=== PATIENT | female | born 1990 | race Caucasian/White ===

== ENCOUNTER 2021-01-29 15:29 | Emergency (ER) | payer OTHER ==
[~2021-01-29] VITALS: Ht 152.4 cm; Wt 61.2 kg
[~2021-01-29 15:29] MED LIST: DOXY100 PO; FLUSAL1005; HYDACE5 PO; IBUP600 PO; IBUP800 PO; METR250 PO; MISO100 PO; ONDA4 PO; OXYACE5T; OXYACE5T PO; PENVK500; PRO-AIR; PROM25 PO; PROM25S PR; Percocet 5-3251 EACH PO; RANI150 PO; RXONDA4ODT MM; Verotin-Gr Cap1 EACH PO
[2021-01-29] MEDS ORDERED: ESCI10 PO (16:08)
[2021-01-29] MEDS ORDERED: BUSPIRONE HCL7.5 M2 PO (16:08)
[2021-01-29] MEDS ORDERED: MIRENA1 EAC1 VAG (16:08)
== END 2021-01-29 16:32 | disposition home or self-care (01) ==
LOC: ER 15:29
DX: S06.0X9A Concussion with loss of consciousness of unspecified duration, initial encounter (principal); E11.9 Type 2 diabetes mellitus without complications; Z88.6 Allergy status to analgesic agent; Y04.2XXA Assault by strike against or bumped into by another person, initial encounter
CPT/HCPCS: 71046; 73130; 99284-25

== ENCOUNTER 2021-03-30 00:17 | Emergency (ER) | payer OTHER ==
[~2021-03-30] VITALS: Ht 152.4 cm; Wt 61.2 kg
[~2021-03-30 00:17] MED LIST changes: +BUSPIRONE HCL7.5 M2 PO; +ESCI10 PO; +MIRENA1 EAC1 VAG
[2021-03-30] MEDS ORDERED: DOXYCYCLINE HY100 M1 PO (01:57)
[2021-03-30 02:12] LABS: BASOPHILS ABSOLUTE AUTO 0.08 K/mm3 (0.00-0.23); BASOPHILS PERCENT AUTO 0 % (0-2); EOSINOPHILS PERCENT AUTO 0 % (0-6); Hematocrit 39.5 % (33.0-51.0); Hemoglobin 13.9 g/dL (11.5-16.0); IMMATURE GRAN ABSOLUTE AUTO 0.11 K/mm3 (0.00-0.10); IMMATURE GRAN PERCENT AUTO 1 % (0-1); LYMPHOCYTES ABSOLUTE AUTO 2.75 K/mm3 (0.84-5.20); LYMPHOCYTES PERCENT AUTO 12 % (21-46); MONOCYTES ABSOLUTE AUTO 1.78 K/mm3 (0.16-1.47); MONOCYTES PERCENT AUTO 8 % (4-13); Mean Corpuscular HGB 29.9 pg (26.0-34.0); Mean Corpuscular HGB Conc 35.2 g/dL (31.5-36.5); Mean Corpuscular Volume 85 fL (80-100); Mean Platelet Volume 8.8 fL (9.1-12.4); NEUTROPHILS ABSOLUTE AUTO 18.28 K/mm3 (1.96-9.15); NEUTROPHILS PERCENT AUTO 80 % (41-73); NRBC ABSOLUTE 0.02 K/mm3 (0.00-0.02); NRBC Auto 0.1 /100 WBC (0.0-0.2); Platelet Count 611 K/mm3 (150-400); RDW Coefficient Variation 12.2 % (11.7-14.2); RDW Standard Deviation 37.4 fL (35.1-46.3); Red Blood Cell Count 4.65 M/mm3 (3.80-5.20)
[2021-03-30 02:30] LABS: Alanine Aminotransfer (ALT/SGP 22 U/L (12-78); Albumin, Blood 4.3 g/dL (3.4-5.0); Alk Phos 77 U/L (50-136); Anion Gap 14 mmol/L (6-16); Aspartate Aminotrans (AST/SGOT 21 U/L (12-37); Bilirubin, Total 1.2 mg/dL (0.1-1.0); Blood Urea Nitrogen 8 mg/dL (8-24); Bun/Creatinine Ratio 16.8 (12.0-20.0); CO2, Blood 19 mmol/L (21-32); Calcium, Blood 9.6 mg/dL (8.5-10.1); Chloride, Blood 100 mmol/L (98-108); Creatinine, Blood 0.48 mg/dL (0.40-1.00); Globulin, Blood 4.5 g/dL (2.2-4.0); Glomerular Filtration Rate >60 (60-); Glucose, Blood 101 mg/dL (70-99); Potassium, Blood 3.1 mmol/L (3.5-5.5); Sodium, Blood 133 mmol/L (136-145); Total Protein, Blood 8.8 g/dL (6.4-8.2)
[2021-03-30] MEDS ORDERED: PROM12.5S PR (04:11)
[2021-03-30] MEDS ORDERED: ESCI10 PO (19:11)
[2021-03-30] MEDS ORDERED: ONDA4ODT MM (19:12)
== END 2021-03-30 05:45 | disposition home or self-care (01) ==
LOC: ER 00:17
PROVIDERS: Emergency Medicine
DX: R10.2 Pelvic and perineal pain (principal); Z88.6 Allergy status to analgesic agent; Z91.018 Allergy to other foods; Z79.899 Other long term (current) drug therapy
CPT/HCPCS: 76830; 76856; 80053; 83690; 85025; 96374; 96375; 99284-25; A9270; J1630; J2550; J3010; J7030

== ENCOUNTER 2021-03-30 15:03 | Inpatient (IN) | payer OTHER ==
[~2021-03-30] VITALS: Ht 152.4 cm; Wt 59.1 kg
[~2021-03-30 15:03] MED LIST changes: +DOXYCYCLINE HY100 M1 PO; +PROM12.5S PR
[2021-03-30 16:18] LABS: BASOPHILS ABSOLUTE AUTO 0.05 K/mm3 (0.00-0.23); BASOPHILS PERCENT AUTO 0 % (0-2); EOSINOPHILS ABSOLUTE AUTO 0.01 K/mm3 (0.00-0.68); EOSINOPHILS PERCENT AUTO 0 % (0-6); Hematocrit 40.1 % (33.0-51.0); IMMATURE GRAN ABSOLUTE AUTO 0.11 K/mm3 (0.00-0.10); IMMATURE GRAN PERCENT AUTO 1 % (0-1); LYMPHOCYTES ABSOLUTE AUTO 3.34 K/mm3 (0.84-5.20); LYMPHOCYTES PERCENT AUTO 21 % (21-46); MONOCYTES ABSOLUTE AUTO 1.23 K/mm3 (0.16-1.47); MONOCYTES PERCENT AUTO 8 % (4-13); Mean Corpuscular HGB 29.6 pg (26.0-34.0); Mean Corpuscular HGB Conc 34.9 g/dL (31.5-36.5); Mean Corpuscular Volume 85 fL (80-100); Mean Platelet Volume 8.7 fL (9.1-12.4); NEUTROPHILS ABSOLUTE AUTO 11.45 K/mm3 (1.96-9.15); NEUTROPHILS PERCENT AUTO 71 % (41-73); Platelet Count 581 K/mm3 (150-400); RDW Coefficient Variation 12.3 % (11.7-14.2); RDW Standard Deviation 38.3 fL (35.1-46.3); Red Blood Cell Count 4.73 M/mm3 (3.80-5.20); White Blood Cell Count 16.19 K/mm3 (4.00-11.30)
[2021-03-30 16:32] LABS: Alanine Aminotransfer (ALT/SGP 23 U/L (12-78); Albumin, Blood 4.1 g/dL (3.4-5.0); Albumin/Globulin Ratio 0.9 (0.8-1.8); Alk Phos 77 U/L (50-136); Anion Gap 12 mmol/L (6-16); Aspartate Aminotrans (AST/SGOT 19 U/L (12-37); Blood Urea Nitrogen 6 mg/dL (8-24); Bun/Creatinine Ratio 11.3 (12.0-20.0); CO2, Blood 21 mmol/L (21-32); Calcium, Blood 9.4 mg/dL (8.5-10.1); Chloride, Blood 102 mmol/L (98-108); Creatinine, Blood 0.53 mg/dL (0.40-1.00); Globulin, Blood 4.6 g/dL (2.2-4.0); Glomerular Filtration Rate >60 (60-); Glucose, Blood 97 mg/dL (70-99); Sodium, Blood 135 mmol/L (136-145); Total Protein, Blood 8.7 g/dL (6.4-8.2)
[2021-03-30 17:46] LABS: Source, Urine Clean Catch
[2021-03-30 17:59] LABS: Appearance, Urine Hazy (Clear); Bilirubin, Urine Neg (Neg); Blood, Urine 4+ (Neg); Color, Urine Yellow (P-Yellow); Glucose Qualitative, Urine Neg (Neg); Ketones, Urine 4+ (Neg); Leukocyte Esterase, Urine 1+ (Neg); Nitrite, Urine Neg (Neg); Protein, Urine 3+ (Neg); Specific Gravity, Urine 1.025 (1.003-1.022); Urobilinogen, Urine NORM (Normal)
[2021-03-30 18:41] LABS: Hyaline Casts 0-2 /lpf (0-2)
[2021-03-30 18:42] LABS: Bacteria Mod /hpf; Calcium Oxalate Crystals Mod /hpf; Mucus Light (0-Heavy); Squamous Epithelial Cells Mod /hpf (Few)
[2021-03-30] MEDS ORDERED: ESCI10 PO (19:11)
[2021-03-30] MEDS ORDERED: ONDA4ODT MM (19:12)
[2021-03-30 20:38] LABS: SARS-Cov-2 (COVID-19) PCR, MMC NEGATIVE (NEGATIVE)
--- NOTE | 2021-03-30 21:45 | NUR ---
PT ARRIVED TO FLOOR FROM ER. PT A/O, VSS. PT REP MILD DIZZINESS WHN FIRST UP OOB. PT REP LOWER ABD/PELVIC PAIN X6 DAYS. PT DENIES VAGINAL BLEEDING OR ABNORMAL DISCHARGE. PT DENIES PAIN W/URINATION, SHE DOES REPORT PAIN W/INTERCOURSE. PT N/V X6 DAYS, REP SHE HAS BEEN UNABLE TO KEEP SOLID FOOD DOWN FOR 6 DAYS. PT ORIENTED TO ROOM/CALL LIGHT, MEDS AND ORDERS REV. PLAN TO MONITOR AND TX PER ORDERS.
[2021-03-31 00:48] LABS: Candida species (DNA Probe) Negative (NEGATIVE); G. vaginalis (DNA Probe) Positive (NEGATIVE); T. vaginalis (DNA Probe) Negative (NEGATIVE)
[2021-03-31 04:58] LABS: BASOPHILS ABSOLUTE AUTO 0.05 K/mm3 (0.00-0.23); BASOPHILS PERCENT AUTO 0 % (0-2); EOSINOPHILS ABSOLUTE AUTO 0.02 K/mm3 (0.00-0.68); EOSINOPHILS PERCENT AUTO 0 % (0-6); Hematocrit 36.7 % (33.0-51.0); Hemoglobin 12.6 g/dL (11.5-16.0); IMMATURE GRAN ABSOLUTE AUTO 0.06 K/mm3 (0.00-0.10); IMMATURE GRAN PERCENT AUTO 0 % (0-1); LYMPHOCYTES ABSOLUTE AUTO 2.77 K/mm3 (0.84-5.20); LYMPHOCYTES PERCENT AUTO 18 % (21-46); MONOCYTES ABSOLUTE AUTO 1.25 K/mm3 (0.16-1.47); MONOCYTES PERCENT AUTO 8 % (4-13); Mean Corpuscular HGB 29.3 pg (26.0-34.0); Mean Corpuscular HGB Conc 34.3 g/dL (31.5-36.5); Mean Corpuscular Volume 85 fL (80-100); Mean Platelet Volume 8.5 fL (9.1-12.4); NEUTROPHILS ABSOLUTE AUTO 11.66 K/mm3 (1.96-9.15); NEUTROPHILS PERCENT AUTO 74 % (41-73); Platelet Count 469 K/mm3 (150-400); RDW Coefficient Variation 12.2 % (11.7-14.2); RDW Standard Deviation 37.6 fL (35.1-46.3); White Blood Cell Count 15.81 K/mm3 (4.00-11.30)
[2021-03-31 05:37] LABS: Anion Gap 11 mmol/L (6-16); Blood Urea Nitrogen 3 mg/dL (8-24); Bun/Creatinine Ratio 6.5 (12.0-20.0); CO2, Blood 24 mmol/L (21-32); Calcium, Blood 8.4 mg/dL (8.5-10.1); Chloride, Blood 100 mmol/L (98-108); Creatinine, Blood 0.46 mg/dL (0.40-1.00); Glomerular Filtration Rate >60 (60-); Glucose, Blood 95 mg/dL (70-99); Sodium, Blood 135 mmol/L (136-145)
--- NOTE | 2021-03-31 06:37 | NUR ---
PT HAD 1 EPISIDE OF APPX 200 ML BILE EMESIS. PT VOIDED CLOUDT URINE X1, DENIED PAIN W/VOID BUT REP INC ABD PAIN AFTER VOIDING. PAIN AND NAUSEA MGD PER EMAR W/REP RELIEF. PT UP OOB INDEP, CARLOS ALBERTO WELL. PT NPO PER ORDERS, IVF AND ABX CONT PER ORDERS.
--- NOTE | 2021-03-31 17:44 | NUR ---
AT ABOUT 1720 PT AWAKE AND CALLING ABOUT PELVIC PAIN AND NAUSEA. PT REPORTS THE PAIN AND NAUSEA IS JUST GETTING WORSE, PT ALSO HAVING EMESIS. PT DENIES ANY ACUTE CHANGE IN PAIN QUALITY, JUST THAT PAIN IS CONSTANT.. PT MEDICATED PER EMAR AND DR. WAGGONER NOTIFIED. SEE NEW ORDERS. PT IV SITE STARTED BEING PAINFUL AT ABOUT THIS TIME ASWELL, NEW IV PLACED BY DIRECTOR OF MARKETING ANALYTICS ARIKA. PT TO IMAGING FOR PELVIC ULTRASOUND AT THIS TIME. PLAN TO START [facility] [employer] AIDE AND IV POTASSIUM UPON PT ARRIVAL BACK TO ROOM.
--- NOTE | 2021-03-31 18:25 | NUR ---
SUMMARY: PT ADMITTED FOR PID. PT HAS HAD CONSTANT NAUSEA AND PELVIC PAIN THOUGHOUT TODAY. IV FENT[facility] AND ANTIEMETICS HELPS PT SLEEP, BUT THEN PT WOULD AWAKE IN PAIN AND HAVE NAUSEA. PT HAD TOTAL OF 4 EMESIS, SMALL AMTS. PT UNABLE TO KEEP ANY LIQUIDS DOWN. PT HAS ANXIETY WITH PAIN/NAUSEA AND HR/BP ELEVATED WHILE PT PAINFUL. VSS WHILE PT AT REST. BRAILLE CODER PUMP NOW INFUSING ALONG WITH POTASSIUM. THESE MEDICATIONS ALONG WITH LR AND MEFOXIN ARE IV COMPATIBLE, VERIFIED WITH PHARMACY. PT INDEP IN ROOM, NO ACUTE SAFETY CONCERNS, WILL CTM AND REPORT TO NOC RN.
[2021-03-31 18:35] LABS: BASOPHILS ABSOLUTE AUTO 0.05 K/mm3 (0.00-0.23); BASOPHILS PERCENT AUTO 0 % (0-2); EOSINOPHILS ABSOLUTE AUTO 0.02 K/mm3 (0.00-0.68); EOSINOPHILS PERCENT AUTO 0 % (0-6); Hematocrit 37.9 % (33.0-51.0); Hemoglobin 13.2 g/dL (11.5-16.0); IMMATURE GRAN PERCENT AUTO 1 % (0-1); LYMPHOCYTES PERCENT AUTO 16 % (21-46); MONOCYTES PERCENT AUTO 7 % (4-13); Mean Corpuscular HGB 29.4 pg (26.0-34.0); Mean Corpuscular HGB Conc 34.8 g/dL (31.5-36.5); Mean Corpuscular Volume 84 fL (80-100); Mean Platelet Volume 8.6 fL (9.1-12.4); NEUTROPHILS ABSOLUTE AUTO 13.59 K/mm3 (1.96-9.15); NEUTROPHILS PERCENT AUTO 76 % (41-73); Platelet Count 565 K/mm3 (150-400); RDW Standard Deviation 37.1 fL (35.1-46.3); Red Blood Cell Count 4.49 M/mm3 (3.80-5.20); White Blood Cell Count 17.76 K/mm3 (4.00-11.30)
--- NOTE | 2021-03-31 19:27 | NUR ---
RECEIVED REPORT AND ASSUMED CARE OF PT. SHE IS LYING QUIETLY IN BED WITH EYES CLOSED, AROUSES TO VOICE. STATES SHE IS FEELING NO WORSE OR BETTER. WCTM.
[2021-04-01 04:29] LABS: BASOPHILS ABSOLUTE AUTO 0.06 K/mm3 (0.00-0.23); BASOPHILS PERCENT AUTO 0 % (0-2); EOSINOPHILS ABSOLUTE AUTO 0.06 K/mm3 (0.00-0.68); EOSINOPHILS PERCENT AUTO 0 % (0-6); Hematocrit 36.2 % (33.0-51.0); Hemoglobin 12.7 g/dL (11.5-16.0); IMMATURE GRAN ABSOLUTE AUTO 0.08 K/mm3 (0.00-0.10); IMMATURE GRAN PERCENT AUTO 1 % (0-1); LYMPHOCYTES ABSOLUTE AUTO 3.85 K/mm3 (0.84-5.20); LYMPHOCYTES PERCENT AUTO 27 % (21-46); MONOCYTES ABSOLUTE AUTO 1.15 K/mm3 (0.16-1.47); MONOCYTES PERCENT AUTO 8 % (4-13); Mean Corpuscular HGB Conc 35.1 g/dL (31.5-36.5); Mean Corpuscular Volume 85 fL (80-100); Mean Platelet Volume 8.5 fL (9.1-12.4); NEUTROPHILS ABSOLUTE AUTO 9.25 K/mm3 (1.96-9.15); NEUTROPHILS PERCENT AUTO 64 % (41-73); Platelet Count 498 K/mm3 (150-400); RDW Coefficient Variation 12.1 % (11.7-14.2); RDW Standard Deviation 37.8 fL (35.1-46.3); Red Blood Cell Count 4.24 M/mm3 (3.80-5.20); White Blood Cell Count 14.45 K/mm3 (4.00-11.30)
[2021-04-01 04:48] LABS: Alanine Aminotransfer (ALT/SGP 19 U/L (12-78); Albumin, Blood 3.2 g/dL (3.4-5.0); Albumin/Globulin Ratio 0.8 (0.8-1.8); Alk Phos 67 U/L (50-136); Anion Gap 10 mmol/L (6-16); Aspartate Aminotrans (AST/SGOT 10 U/L (12-37); Blood Urea Nitrogen 4 mg/dL (8-24); Bun/Creatinine Ratio 8.2 (12.0-20.0); CO2, Blood 26 mmol/L (21-32); Calcium, Blood 8.6 mg/dL (8.5-10.1); Chloride, Blood 100 mmol/L (98-108); Creatinine, Blood 0.49 mg/dL (0.40-1.00); Globulin, Blood 3.9 g/dL (2.2-4.0); Glomerular Filtration Rate >60 (60-); Glucose, Blood 72 mg/dL (70-99); Magnesium, Blood 1.8 mg/dL (1.6-2.4); Potassium, Blood 3.2 mmol/L (3.5-5.5); Sodium, Blood 136 mmol/L (136-145); Total Protein, Blood 7.1 g/dL (6.4-8.2)
--- NOTE | 2021-04-01 06:27 | NUR ---
SHIFT SUMMARY: KOTA IS A&OX4. VSS, NO ACUTE EVENTS OVERNIGHT. SHE REPORTS IMPROVING PAIN CONTROL WITH THE [employer] CLINICAL TEAM MANAGER. SHE HAS REPORTED NAUSEA FOR WHICH SHE WAS MEDICATED WITH REGLAN AND COMPAZINE. SHE REPORTS FEELING BETTER THIS MORNING THAN SHE DID YESTERDAY, ONLY ABLE TO TOLERATE A FEW ICE CHIPS. SHE REPORTS THAT IT HAS BEEN A FULL SEVEN DAYS SINCE SHE ATE, THIS WAS REPORTED TO DR. WAGGONER, NO NEW ORDERS AT THIS TIME. SHE IS INDEPENDENT IN THE ROOM, URINATING WITHOUT DIFFICULTY. SHE DID REPORT HAVING DIARRHEA THE LAST FEW DAYS. SHE DENIES ANY NEW COMPLAINTS OR CONCERNS. WBC COUNT IMPROVING. SHE IS LYING IN BED WITH THE CALL LIGHT IN REACH. WILL REPORT TO DAY SHIFT RN.
--- NOTE | 2021-04-01 15:05 | NUR ---
DR WAGGONER IN TO SEE PT. [employer] BASE MANAGER DC'D AT 1445. WILL SWITCH TO PERCOCET. ADVANCE DIET TOLERATED. PLAN TO DC THIS EVENING IF PT TOLERATES PO INTAKE AND PAIN MEDS.
[2021-04-01] MEDS ORDERED: PROC5 PO (15:47)
[2021-04-01] MEDS ORDERED: Percocet 5-3251 EACH PO (15:48)
--- NOTE | 2021-04-01 18:27 | NUR ---
DISCHARGE PT IS A/O X4, IND IN ROOM, TOLERATING PO INTAKE AND VOIDING. PAIN MANAGED ON PO PAIN MEDICATION. PT DENIES NAUSEA. DC INSTRUCTIONS REVIEWED WITH PT; REPORTS UNDERSTANDING AND NO QUESTIONS OR CONCERNS. PT SENT WITH SCRIPS AND DC INSTRUCTIONS. PT OFFERED WHEELCHAIR RIDE OUT BUT DECLINED. AMBULATED OUT WHERE HER RIDE WAS WAITING. IV DC'D WNL. NO OTHER IV'S IN PLACE. PT DC'D AT 1815.
[2021-04-02 01:06] LABS: CHLAMYDIA TRACHOMATIS, NAA Negative (Negative)
== END 2021-04-01 18:21 | disposition home or self-care (01) | DRG 760 ==
LOC: ER 15:03 → SURS 19:42
PROVIDERS: Emergency Medicine; Obstetrics & Gynecology; Physician Assistant; ADMIT Obstetrics & Gynecology
DX: N83.291 Other ovarian cyst, right side (principal); N73.0 Acute parametritis and pelvic cellulitis; Z20.822 Contact with and (suspected) exposure to COVID-19; E11.9 Type 2 diabetes mellitus without complications; J45.909 Unspecified asthma, uncomplicated; F32.9 Major depressive disorder, single episode, unspecified; F41.9 Anxiety disorder, unspecified; N80.9 Endometriosis, unspecified; Z79.3 Long term (current) use of hormonal contraceptives; Z88.8 Allergy status to other drugs, medicaments and biological substances; Z88.4 Allergy status to anesthetic agent; Z90.49 Acquired absence of other specified parts of digestive tract; Z98.890 Other specified postprocedural states
CPT/HCPCS: 36415; 74177; 76830; 76856; 80048; 80053; 81001; 83605; 83735; 84703; 85025; 86140; 87086; 87480; 87491; 87510; 87591; 87660; 94762; 96365-59; 96366; 96367; 96375; 96376; 99285-25; A9270; G0378; J0694; J0780; J1170; J2405; J2550; J2765; J3010; J3480; J7030; J7040; J7120; Q9967; U0004

== ENCOUNTER 2022-04-10 10:56 | Emergency (ER) | payer OTHER ==
[~2022-04-10] VITALS: Ht 152.4 cm; Wt 57.6 kg
[~2022-04-10 10:56] MED LIST changes: +CEPH500 PO; +ONDA4ODT MM; +PROC5 PO
[2022-04-10 13:16] LABS: BASOPHILS ABSOLUTE AUTO 0.03 K/mm3 (0.00-0.23); BASOPHILS PERCENT AUTO 0 % (0-2); Hematocrit 48.2 % (33.0-51.0); LYMPHOCYTES PERCENT AUTO 11 % (21-46); Mean Corpuscular HGB 28.6 pg (26.0-34.0); Mean Corpuscular HGB Conc 33.2 g/dL (31.5-36.5); Mean Corpuscular Volume 86 fL (80-100); Mean Platelet Volume 8.5 fL (9.1-12.4); Platelet Count 610 K/mm3 (150-400); RDW Coefficient Variation 13.3 % (11.7-14.2); RDW Standard Deviation 41.7 fL (35.1-46.3); Red Blood Cell Count 5.59 M/mm3 (3.80-5.20); White Blood Cell Count 19.88 K/mm3 (4.00-11.30)
[2022-04-10 13:39] LABS: Albumin, Blood 4.6 g/dL (3.4-5.0); Bilirubin, Total 0.7 mg/dL (0.1-1.0); Bun/Creatinine Ratio 35.9 (12.0-20.0); Calcium, Blood 10.2 mg/dL (8.5-10.1); Creatinine, Blood 0.56 mg/dL (0.40-1.00); Globulin, Blood 4.7 g/dL (2.2-4.0); Potassium, Blood 3.6 mmol/L (3.5-5.5); Total Protein, Blood 9.3 g/dL (6.4-8.2)
[2022-04-10 14:19] LABS: EOSINOPHILS PERCENT AUTO 0 % (0-6)
[2022-04-10 14:27] LABS: IMMATURE GRAN PERCENT AUTO 1 % (0-1); LYMPHOCYTES ABSOLUTE AUTO 2.16 K/mm3 (0.84-5.20); MONOCYTES ABSOLUTE AUTO 1.27 K/mm3 (0.16-1.47); MONOCYTES PERCENT AUTO 6 % (4-13); NEUTROPHILS PERCENT AUTO 82 % (41-73)
== END 2022-04-10 16:37 | disposition left against medical advice (07) ==
LOC: ER 10:56
PROVIDERS: Student in an Organized Health Care Education/Training Program
DX: R10.9 Unspecified abdominal pain (principal); R11.2 Nausea with vomiting, unspecified; Z53.21 Procedure and treatment not carried out due to patient leaving prior to being seen by health care provider
CPT/HCPCS: 36415; 74177; 80053; 85025; Q9967

== ENCOUNTER → 2022-04-11 | Outpatient (CLI) | payer OTHER ==
[2022-04-11 14:31] LABS: BASOPHILS ABSOLUTE AUTO 0.03 K/mm3 (0.00-0.23); BASOPHILS PERCENT AUTO 0 % (0-2); EOSINOPHILS ABSOLUTE AUTO 0.01 K/mm3 (0.00-0.68); EOSINOPHILS PERCENT AUTO 0 % (0-6); Hematocrit 47.2 % (33.0-51.0); Hemoglobin 16.2 g/dL (11.5-16.0); IMMATURE GRAN ABSOLUTE AUTO 0.06 K/mm3 (0.00-0.10); IMMATURE GRAN PERCENT AUTO 0 % (0-1); LYMPHOCYTES ABSOLUTE AUTO 3.04 K/mm3 (0.84-5.20); LYMPHOCYTES PERCENT AUTO 19 % (21-46); MONOCYTES ABSOLUTE AUTO 1.17 K/mm3 (0.16-1.47); MONOCYTES PERCENT AUTO 7 % (4-13); Mean Corpuscular HGB 29.2 pg (26.0-34.0); Mean Corpuscular HGB Conc 34.3 g/dL (31.5-36.5); Mean Corpuscular Volume 85 fL (80-100); Mean Platelet Volume 8.3 fL (9.1-12.4); NEUTROPHILS ABSOLUTE AUTO 11.87 K/mm3 (1.96-9.15); NEUTROPHILS PERCENT AUTO 73 % (41-73); Platelet Count 634 K/mm3 (150-400); RDW Coefficient Variation 13.1 % (11.7-14.2); RDW Standard Deviation 40.8 fL (35.1-46.3); Red Blood Cell Count 5.54 M/mm3 (3.80-5.20); White Blood Cell Count 16.18 K/mm3 (4.00-11.30)
[2022-04-11 14:44] LABS: Albumin, Blood 4.4 g/dL (3.4-5.0); Albumin/Globulin Ratio 1.1 (0.8-1.8); Bilirubin, Total 1.2 mg/dL (0.1-1.0); Bun/Creatinine Ratio 30.5 (12.0-20.0); Calcium, Blood 9.7 mg/dL (8.5-10.1); Creatinine, Blood 0.59 mg/dL (0.40-1.00); Globulin, Blood 4.1 g/dL (2.2-4.0); Potassium, Blood 3.8 mmol/L (3.5-5.5); Total Protein, Blood 8.5 g/dL (6.4-8.2)
== END | disposition home or self-care (01) ==
LOC: LAB SHORT 14:24
PROVIDERS: Chiropractor
DX: E86.0 Dehydration (principal)
CPT/HCPCS: 80053; 83690; 85025

== ENCOUNTER 2023-08-27 00:48 | Observation (INO) | payer OTHER ==
[~2023-08-27] VITALS: Ht 152.4 cm; Wt 56.7 kg
[2023-08-27 01:25] LABS: BASOPHILS ABSOLUTE AUTO 0.08 K/mm3 (0.00-0.23); BASOPHILS PERCENT AUTO 1 % (0-2); EOSINOPHILS ABSOLUTE AUTO 0.07 K/mm3 (0.00-0.68); EOSINOPHILS PERCENT AUTO 1 % (0-6); Hematocrit 41.4 % (33.0-51.0); Hemoglobin 13.6 g/dL (11.5-16.0); IMMATURE GRAN ABSOLUTE AUTO 0.07 K/mm3 (0.00-0.10); IMMATURE GRAN PERCENT AUTO 1 % (0-1); LYMPHOCYTES ABSOLUTE AUTO 3.71 K/mm3 (0.84-5.20); LYMPHOCYTES PERCENT AUTO 28 % (21-46); MONOCYTES ABSOLUTE AUTO 0.76 K/mm3 (0.16-1.47); MONOCYTES PERCENT AUTO 6 % (4-13); Mean Corpuscular HGB 29.4 pg (26.0-34.0); Mean Corpuscular HGB Conc 32.9 g/dL (31.5-36.5); Mean Corpuscular Volume 89 fL (80-100); Mean Platelet Volume 8.4 fL (9.1-12.4); NEUTROPHILS ABSOLUTE AUTO 8.49 K/mm3 (1.96-9.15); NEUTROPHILS PERCENT AUTO 65 % (41-73); Platelet Count 641 K/mm3 (150-400); RDW Coefficient Variation 12.6 % (11.7-14.2); RDW Standard Deviation 41.3 fL (35.1-46.3); Red Blood Cell Count 4.63 M/mm3 (3.80-5.20); White Blood Cell Count 13.18 K/mm3 (4.00-11.30)
[2023-08-27 01:45] LABS: Ethanol (Alcohol), Blood, Med 20 mg/dL; Salicylate <1.7 mg/dL (2.8-20.0)
[2023-08-27 01:49] LABS: Acetaminophen, Random <2.0 ug/mL (10.0-30.0); Alanine Aminotransfer (ALT/SGP 18 U/L (12-78); Albumin, Blood 3.9 g/dL (3.4-5.0); Albumin/Globulin Ratio 0.8 (0.8-1.8); Alk Phos 94 U/L (50-136); Anion Gap 8 mmol/L (6-16); Aspartate Aminotrans (AST/SGOT 22 U/L (12-37); Bilirubin, Total 0.3 mg/dL (0.1-1.0); Blood Urea Nitrogen 11 mg/dL (8-24); Bun/Creatinine Ratio 19.8 (12.0-20.0); CO2, Blood 23 mmol/L (21-32); Calcium, Blood 9.5 mg/dL (8.5-10.1); Chloride, Blood 108 mmol/L (98-108); Creatinine, Blood 0.56 mg/dL (0.40-1.00); Globulin, Blood 4.8 g/dL (2.2-4.0); Glomerular Filtration Rate 124 (60-); Glucose, Blood 89 mg/dL (70-99); Potassium, Blood 3.6 mmol/L (3.5-5.5); Sodium, Blood 139 mmol/L (136-145); Total Protein, Blood 8.7 g/dL (6.4-8.2)
[2023-08-27 12:36] LABS: Source, Urine Clean Catch
[2023-08-27 12:39] LABS: Appearance, Urine Clear (Clear); Bilirubin, Urine Neg (Neg); Blood, Urine 2+ (Neg); Color, Urine Yellow (P-Yellow); Glucose Qualitative, Urine Neg (Neg); Ketones, Urine Neg (Neg); Leukocyte Esterase, Urine Neg (Neg); Nitrite, Urine Neg (Neg); Protein, Urine Neg (Neg); Urobilinogen, Urine NORM (Normal)
[2023-08-27 12:46] LABS: Bacteria Few /hpf; Squamous Epithelial Cells Few /hpf (Few)
[2023-08-27 12:47] LABS: Calcium Oxalate Crystals Few /hpf; Mucus Light (0-Heavy)
[2023-08-27 12:54] LABS: U Cannabinoids Screen DETECTED
[2023-08-27 12:55] LABS: U Amphetamine Screen Not Detected; U Barbituate Screen Not Detected; U Benzodiazapine Screen DETECTED; U Buprenorphine Screen Not Detected; U Cocaine Screen Not Detected; U Methadone Screen Not Detected; U Methamphetamine Screen Not Detected; U Opiates Screen Not Detected; U Oxycodone Screen Not Detected; U Phencyclidine Screen Not Detected
[2023-08-27 16:25] LABS: Influenza A, PCR NEGATIVE (NEGATIVE); Influenza B, PCR NEGATIVE (NEGATIVE); Resp Syncytial Virus, PCR NEGATIVE (NEGATIVE); SARS-Cov-2 (COVID-19) PCR, MMC NEGATIVE (NEGATIVE)
[2023-08-29] MEDS ORDERED: QUET200 PO (10:39)
[2023-08-29] MEDS ORDERED: BUPR150ER PO (10:39)
[2023-08-29 10:58] VITALS: BP 147/90
== END 2023-08-29 10:56 | disposition home or self-care (01) ==
LOC: ER 00:48 → EOR 00:49
PROVIDERS: ADMIT Student in an Organized Health Care Education/Training Program
DX: F33.2 Major depressive disorder, recurrent severe without psychotic features (principal); F43.10 Post-traumatic stress disorder, unspecified
CPT/HCPCS: 0241U; 80053; 81001; 81025; 85025; 93005; 93010; 96361; 96374; 96376; 99285-25; A9270; G0378; G0480; J2060; J7030

== ENCOUNTER 2023-10-26 08:06 | Emergency (ER) | payer OTHER ==
[~2023-10-26] VITALS: Ht 152.4 cm; Wt 59.0 kg
[~2023-10-26 08:06] MED LIST changes: +BUPR150ER PO; +QUET200 PO
[2023-10-26] MEDS ORDERED: NS 1,000 ML IV SCH (08:10)
[2023-10-26 08:19] LABS: BASOPHILS ABSOLUTE AUTO 0.07 K/mm3 (0.00-0.23); BASOPHILS PERCENT AUTO 0 % (0-2); EOSINOPHILS PERCENT AUTO 0 % (0-6); Hemoglobin 13.2 g/dL (11.5-16.0); IMMATURE GRAN ABSOLUTE AUTO 0.23 K/mm3 (0.00-0.10); IMMATURE GRAN PERCENT AUTO 1 % (0-1); LYMPHOCYTES ABSOLUTE AUTO 2.63 K/mm3 (0.84-5.20); LYMPHOCYTES PERCENT AUTO 8 % (21-46); MONOCYTES ABSOLUTE AUTO 2.47 K/mm3 (0.16-1.47); MONOCYTES PERCENT AUTO 7 % (4-13); Mean Corpuscular HGB 29.4 pg (26.0-34.0); Mean Corpuscular HGB Conc 33.8 g/dL (31.5-36.5); Mean Corpuscular Volume 87 fL (80-100); Mean Platelet Volume 8.5 fL (9.1-12.4); NEUTROPHILS ABSOLUTE AUTO 28.13 K/mm3 (1.96-9.15); NEUTROPHILS PERCENT AUTO 84 % (41-73); Platelet Count 617 K/mm3 (150-400); RDW Coefficient Variation 12.5 % (11.7-14.2); RDW Standard Deviation 39.7 fL (35.1-46.3); Red Blood Cell Count 4.49 M/mm3 (3.80-5.20); White Blood Cell Count 33.53 K/mm3 (4.00-11.30)
[2023-10-26] MEDS ORDERED: HYDROmorphone HCl/Pf 1MG SYR IV ONE ×2 (08:25→14:05)
[2023-10-26] MEDS ORDERED: Ketorolac Tromethamine 15mg Vial IV ONE (08:25)
[2023-10-26 08:39] LABS: Albumin/Globulin Ratio 0.9 (0.8-1.8); Bilirubin, Total 0.6 mg/dL (0.1-1.0); Bun/Creatinine Ratio 20.6 (12.0-20.0); Calcium, Blood 9.6 mg/dL (8.5-10.1); Creatinine, Blood 0.53 mg/dL (0.40-1.00); Globulin, Blood 4.5 g/dL (2.2-4.0); Total Protein, Blood 8.5 g/dL (6.4-8.2)
[2023-10-26 08:50] LABS: Source, Urine Clean Catch
[2023-10-26] MEDS ORDERED: Ondansetron HCl 2 MG / ML 2ML Vial IV ONE ×2 (08:50→14:35)
[2023-10-26 09:00] LABS: Appearance, Urine Cloudy (Clear); Bilirubin, Urine Neg (Neg); Blood, Urine 5+ (Neg); Color, Urine Yellow (P-Yellow); Glucose Qualitative, Urine Neg (Neg); Ketones, Urine 3+ (Neg); Leukocyte Esterase, Urine 3+ (Neg); Nitrite, Urine Neg (Neg); Protein, Urine 3+ (Neg); Urobilinogen, Urine NORM (Normal); pH, Urine 6.5 (5.0-8.0)
[2023-10-26 09:09] LABS: White Blood Cells, Urine 50-100 /hpf (0-5)
[2023-10-26 09:10] LABS: Red Blood Cells, Urine 25-50 /hpf (0-2)
[2023-10-26 09:12] LABS: Bacteria Many /hpf; Mucus Heavy (0-Heavy); Squamous Epithelial Cells Few /hpf (Few)
[2023-10-26] MEDS ORDERED: CefTRIAXone Sodium 1,000 MG in NS 100 ML IV ONE (09:55)
[2023-10-26 12:35] LABS: BASOPHILS ABSOLUTE AUTO 0.05 K/mm3 (0.00-0.23); BASOPHILS PERCENT AUTO 0 % (0-2); Hematocrit 35.5 % (33.0-51.0); Mean Corpuscular HGB 29.6 pg (26.0-34.0); Mean Corpuscular HGB Conc 33.8 g/dL (31.5-36.5); Mean Corpuscular Volume 87 fL (80-100); Mean Platelet Volume 8.7 fL (9.1-12.4); Platelet Count 518 K/mm3 (150-400); RDW Coefficient Variation 12.4 % (11.7-14.2); RDW Standard Deviation 40.1 fL (35.1-46.3); Red Blood Cell Count 4.06 M/mm3 (3.80-5.20); White Blood Cell Count 26.03 K/mm3 (4.00-11.30)
[2023-10-26 12:44] LABS: Source, Urine Straight Cath
[2023-10-26 13:04] LABS: Appearance, Urine Hazy (Clear); Bilirubin, Urine Neg (Neg); Blood, Urine 4+ (Neg); Color, Urine Yellow (P-Yellow); Glucose Qualitative, Urine Neg (Neg); Ketones, Urine 1+ (Neg); Leukocyte Esterase, Urine 2+ (Neg); Nitrite, Urine Neg (Neg); Protein, Urine 3+ (Neg); Specific Gravity, Urine 1.005 (1.003-1.022); Urobilinogen, Urine NORM (Normal)
[2023-10-26 13:19] LABS: Bacteria Mod /hpf; Squamous Epithelial Cells Rare /hpf (Few)
[2023-10-26 13:25] LABS: EOSINOPHILS ABSOLUTE AUTO 0.01 K/mm3 (0.00-0.68); EOSINOPHILS PERCENT AUTO 0 % (0-6); IMMATURE GRAN ABSOLUTE AUTO 0.13 K/mm3 (0.00-0.10); IMMATURE GRAN PERCENT AUTO 1 % (0-1); LYMPHOCYTES PERCENT AUTO 11 % (21-46); MONOCYTES ABSOLUTE AUTO 1.96 K/mm3 (0.16-1.47); MONOCYTES PERCENT AUTO 8 % (4-13); NEUTROPHILS ABSOLUTE AUTO 21.13 K/mm3 (1.96-9.15); NEUTROPHILS PERCENT AUTO 80 % (41-73)
[2023-10-26 14:55] VITALS: BP 130/85
== END 2023-10-26 15:05 | disposition short-term general hospital (02) ==
LOC: ER 08:06
PROVIDERS: Emergency Medicine; Physician Assistant
DX: N13.6 Pyonephrosis (principal); Z91.018 Allergy to other foods
CPT/HCPCS: 36415; 51701; 74177; 80053; 81001; 81025; 83605; 83690; 85025; 87077; 87086; 87186; 96361-59; 96365-59; 96375-59; 96376-59; 99285-25; J0696; J1170; J1885; J2405; J7030; Q9967

== ENCOUNTER 2025-05-26 08:58 | Emergency (ER) | payer OTHER ==
[~2025-05-26] VITALS: Ht 152.4 cm; Wt 47.2 kg
[2025-05-26] MEDS ORDERED: Ondansetron HCl 2 MG / ML 2ML Vial IV ONE (09:15)
[2025-05-26] MEDS ORDERED: NS 1,000 ML IV SCH (09:15)
[2025-05-26 09:50] LABS: BASOPHILS ABSOLUTE AUTO 0.07 K/mm3 (0.00-0.23); BASOPHILS PERCENT AUTO 1 % (0-2); EOSINOPHILS ABSOLUTE AUTO 0.02 K/mm3 (0.00-0.68); EOSINOPHILS PERCENT AUTO 0 % (0-6); Hematocrit 47.6 % (33.0-51.0); Hemoglobin 16.8 g/dL (11.5-16.0); IMMATURE GRAN ABSOLUTE AUTO 0.06 K/mm3 (0.00-0.10); IMMATURE GRAN PERCENT AUTO 1 % (0-1); LYMPHOCYTES ABSOLUTE AUTO 2.74 K/mm3 (0.84-5.20); LYMPHOCYTES PERCENT AUTO 21 % (21-46); MONOCYTES ABSOLUTE AUTO 1.18 K/mm3 (0.16-1.47); MONOCYTES PERCENT AUTO 9 % (4-13); Mean Corpuscular HGB Conc 35.3 g/dL (31.5-36.5); Mean Corpuscular Volume 86 fL (80-100); NEUTROPHILS ABSOLUTE AUTO 9.00 K/mm3 (1.96-9.15); NEUTROPHILS PERCENT AUTO 69 % (41-73); NRBC ABSOLUTE 0.00 K/mm3 (0.00-0.02); NRBC Auto 0.0 /100 WBC (0.0-0.2); Platelet Count 555 K/mm3 (150-400); RDW Coefficient Variation 11.9 % (11.7-14.2); RDW Standard Deviation 37.6 fL (35.1-46.3)
[2025-05-26 10:12] LABS: Alanine Aminotransfer (ALT/SGP 44.0 U/L (12-78); Albumin, Blood 4.0 g/dL (3.4-5.0); Albumin/Globulin Ratio 0.9 (0.8-1.8); Anion Gap 15.0 mmol/L (3-11); Aspartate Aminotrans (AST/SGOT 22.0 U/L (12-37); Bilirubin, Total 0.9 mg/dL (0.1-1.0); Blood Urea Nitrogen 20.0 mg/dL (8-24); CO2, Blood 30.0 mmol/L (21-32); Calcium, Blood 9.9 mg/dL (8.5-10.1); Chloride, Blood 89.0 mmol/L (98-108); Creatinine, Blood 0.6 mg/dL (0.40-1.00); Globulin, Blood 4.7 g/dL (2.2-4.0); Glucose, Blood 110.0 mg/dL (70-99); Magnesium, Blood 2.3 mg/dL (1.6-2.4); Potassium, Blood 3.5 mmol/L (3.5-5.5); Sodium, Blood 130.0 mmol/L (136-145); Total Protein, Blood 8.7 g/dL (6.4-8.2)
[2025-05-26 10:15] LABS: Source, Urine Clean Catch
[2025-05-26 10:23] LABS: Bilirubin, Urine Neg (Neg); Glucose Qualitative, Urine Neg (Neg); Ketones, Urine 3+ (Neg); Leukocyte Esterase, Urine 1+ (Neg); Protein, Urine 2+ (Neg); Specific Gravity, Urine 1.010 (1.003-1.022); Urobilinogen, Urine 1+ (Normal)
[2025-05-26 10:28] LABS: Color, Urine Yellow (P-Yellow)
[2025-05-26] MEDS ORDERED: Metoclopramide HCl 5MG / ML 2ML Vial IV ONE (11:10)
[2025-05-26] MEDS ORDERED: DiphenhydrAMINE HCl 50 MG/ML 1ML Vial IV ONE (11:10)
[2025-05-26] MEDS ORDERED: ACET500 PO (13:05)
[2025-05-26] MEDS ORDERED: METO10 PO (13:05)
[2025-05-26] MEDS ORDERED: ONDA4 PO (13:05)
[2025-05-26 13:30] VITALS: BP 140/94
== END 2025-05-26 14:38 | disposition home or self-care (01) ==
LOC: ER 08:58
PROVIDERS: Emergency Medicine
DX: K56.1 Intussusception (principal); K52.9 Noninfective gastroenteritis and colitis, unspecified; Z91.018 Allergy to other foods; Z79.899 Other long term (current) drug therapy
CPT/HCPCS: 74177; 80053; 81001; 81025; 83690; 83735; 85025; 96361; 96374-59; 96375; 99284-25; J1200; J2405; J2765; J7030